=== PATIENT | male | born 2000 | race Caucasian/White ===

== ENCOUNTER 2019-03-15 22:54 | Emergency (ER) | payer BC | END 2019-03-15 23:55 | disposition home or self-care (01) | LOC: ERS 22:54 | DX: S90.822A Blister (nonthermal), left foot, initial encounter (principal); S90.821A Blister (nonthermal), right foot, initial encounter; J45.909 Unspecified asthma, uncomplicated; G43.909 Migraine, unspecified, not intractable, without status migrainosus; F17.210 Nicotine dependence, cigarettes, uncomplicated; Z79.51 Long term (current) use of inhaled steroids; Z71.6 Tobacco abuse counseling; W21.31XA Struck by shoe cleats, initial encounter | CPT/HCPCS: 99406 ==